=== PATIENT | female | born 1985 | race African-American/Black ===

== ENCOUNTER 2017-09-07 23:27 | Emergency (ER) | payer OTHER ==
[~2017-09-07] VITALS: Ht 167.6 cm; Wt 61.2 kg
[~2017-09-07 23:27] MED LIST: MACROBID 100 M100 M1 PO; PYRIDIUM100 MG PO
== END 2017-09-08 02:41 | disposition home or self-care (01) ==
LOC: ER 23:27
DX: O20.0 Threatened abortion (principal); Z3A.01 Less than 8 weeks gestation of pregnancy

== ENCOUNTER 2017-09-10 12:30 | Emergency (ER) | payer OTHER ==
[~2017-09-10] VITALS: Ht 172.7 cm; Wt 72.6 kg
[2017-09-10 13:05] LABS: HEMATOCRIT 33.9 % (37.0-47.0); HEMOGLOBIN 11.1 gm/dL (12.0-15.0); MCH 27.8 pg (26.0-34.0); MCHC 32.8 g/dL (28.0-37.0); MCV 84.8 fL (80.0-100.0); RBC 3.99 mil/uL (4.20-5.00); RDW 15.9 % (10.5-14.5); WBC 13.5 thou/uL (4.0-11.0)
[2017-09-10 13:14] LABS: CALCIUM 9.4 mg/dL (8.5-10.1); CREATININE 1.1 mg/dL (0.6-1.0); POTASSIUM 3.2 mmol/L (3.5-5.1)
[2017-09-10] MEDS ORDERED: OXYCODONE HCL 55 MG PO (15:21)
== END 2017-09-10 16:14 | disposition home or self-care (01) ==
LOC: ER 12:30
PROVIDERS: Emergency Medicine
DX: O03.9 Complete or unspecified spontaneous abortion without complication (principal); Z98.890 Other specified postprocedural states